=== PATIENT | female | born 1990 | race African-American/Black ===

== ENCOUNTER 2021-02-04 10:32 | Emergency (ER) | payer MEDICAID ==
[~2021-02-04] VITALS: Ht 165.1 cm; Wt 46.0 kg
[2021-02-04] MEDS ORDERED: KETOROLAC 30MG/ML VIAL IV STA (11:16)
[2021-02-04 11:29] LABS: BASOPHILS % 0.6 % (0.0-2.0); EOSINOPHILS % 1.5 % (0.0-5.0); HEMATOCRIT. 42.6 % (36.0-48.0); HEMOGLOBIN. 14.4 g/dL (12.0-16.0); LYMPHOCYTES % 34.3 % (20.0-50.0); MEAN CORPUSCULAR HEMOGLOBIN 30.9 pg (28.0-32.0); MEAN CORPUSCULAR VOLUME 91.6 fL (81.0-99.0); MEAN PLATELET VOLUME 8.8 fl (7.4-10.4); NEUTROPHILS % 57.6 % (40.0-76.0); PLATELET 265 x1000/uL (130-400); RED BLOOD CELL COUNT 4.65 mill/uL (4.2-5.4); RED CELL DISTRIBUTION WIDTH 13.1 % (11.6-14.6)
[2021-02-04] MEDS ORDERED: SODIUM CHLORIDE 0.9% 1,000 ML IV ONE (11:30)
[2021-02-04 11:39] LABS: CLARITY URINE CLEAR (CLEAR); COLOR URINE YELLOW (YELLOW); KETONES URINE TRACE (NEGATIVE); LEUKOCYTE ESTERASE URINE NEGATIVE (NEGATIVE); NITRITE URINE NEGATIVE (NEGATIVE); OCCULT BLOOD URINE NEGATIVE (NEGATIVE); PH URINE 5.5 (4.5-8.0); PROTEIN URINE NEGATIVE (NEGATIVE); SPECIFIC GRAVITY URINE 1.026 (1.005-1.030)
[2021-02-04 11:46] VITALS: BP 132/65
[2021-02-04 11:57] LABS: CHLORIDE 107 mEq/L (98-107)
[2021-02-04] MEDS ORDERED: OMEP20CA14 MT (14:40)
== END 2021-02-04 14:58 | disposition home or self-care (01) ==
LOC: ER 10:48
DX: R10.12 Left upper quadrant pain (principal)
CPT/HCPCS: 36415; 74176; 80053; 81003; 81025; 83690; 85025; 87086; 96374; 99284; J1885; J7030

== ENCOUNTER 2024-07-10 20:03 | Emergency (ER) | payer MEDICAID, OTHER ==
[~2024-07-10] VITALS: Ht 157.5 cm; Wt 50.0 kg
[~2024-07-10 20:03] MED LIST: OMEP20CA14 MT
[2024-07-10 20:13] VITALS: BP 123/77; TEMP 36.9; O2SAT 99
[2024-07-10 20:14] VITALS: PULSE 102; RESP 16; O2SAT 100
== END 2024-07-10 23:00 | disposition home or self-care (01) ==
LOC: ER 20:03
DX: O20.0 Threatened abortion (principal); Z3A.01 Less than 8 weeks gestation of pregnancy
CPT/HCPCS: 76801; 76817; 99284; Z7610; A4606